=== PATIENT | female | born 1995 | race Caucasian/White ===

== ENCOUNTER 2016-11-28 18:41 | Inpatient (IN) | payer MEDICAID ==
[2016-11-28 19:20] LABS: % BASOPHILS 0.8 % (0.0-2.0); % EOSINOPHILS 0.3 % (0.0-5.0); % LYMPHOCYTES 14.2 % (20.0-50.0); % MONOCYTES 3.6 % (2.0-10.0); % NEUTROPHILS 81.1 % (40.0-80.0); HEMATOCRIT 38.8 % (35.0-45.0); HEMOGLOBIN 12.9 gm/dL (11.7-15.5); MEAN CELL VOLUME 80.7 fl (81-100); MEAN CORPUSCULAR HEMOGLOBIN 26.8 pg (27.0-31.0); MEAN CORPUSCULAR HGB CONC 33.2 pg (28.0-36.0); MEAN PLATELET VOLUME 7.3 fl; NEUTROPHILE ABSOLUTE 14.2 Th/cmm (1.8-8.0); PLATELET COUNT 451 Th/cmm (150-400); RED BLOOD COUNT 4.81 Mil/cmm (3.80-5.10); RED CELL DISTRIBUTION WIDTH 12.7 % (11.5-20.0)
--- NOTE | 2016-11-28 19:21 | ED Physician Chart ---
Chief Complaint/HPI - Patient Information Date Seen:: 11/21/16 Time Seen:: 19:15 Chief Complaint:: CHEST PAIN History of Present Illness:: THIS IS A 21 YO FEMALE WITH LEFT CHEST PAIN AFTER USING 200MG OF THC AND NOW SHE CONCERNED ABOUT HER FAST HEART RATE. SHE DENIES DIABETES, HEART DISEASE. HER GRANDMOTHER HAS HEART DISEASE BUT NO ONE ELSE IN THE FAMILY. SHE DENIES . SHE DENIES FEVER, COUGH AND CHEST PAIN. Allergies:: Allergies Allergy/AdvReac Type Severity Reaction Status Date / Time No Known Allergies Allergy Verified 11/28/16 19:09 Vitals:: Vital Signs - 8 hr 11/28/16 19:10 Temp 98.4 F HR 132 RR 19 BP 133/76 O2 Sat % 99 Historian:: Patient Review:: Nurse's Note Reviewed Review of Systems - Review of Systems General/Constitutional: No fever, No chills, No weight loss, No weakness, No diaphoresis, No edema, No loss of appetite Skin: No skin lesions, No rash, No bruising Head: No headache, No light-headedness Eyes: No loss of vision, No pain, No diplopia ENT: No earache, No nasal drainage, No sore throat, No tinnitus Neck: No neck pain, No swelling, No thyromegaly, No stiffness, No mass noted Cardio Vascular: Chest pain, No palpitations, No PND, No orthopnea, No edema Pulmonary: No SOB, No cough, No sputum, No wheezing GI: No nausea, No vomiting, No diarrhea, No pain, No melena, No hematochezia, No constipation, No hematemesis G/U: No dysuria, No frequency, No hematuria Musculoskeletal: No bone or joint pain, No back pain, No muscle pain Endocrine: No polyuria, No polydipsia Psychiatric: No prior psych history, No depression, No anxiety, No suicidal ideation Hematopoietic: No bruising, No lymphadenopathy Allergic/Immuno: No urticaria, No angioedema Neurological: No syncope, No focal symptoms, No weakness, No paresthesia, No headache, No seizure, No dizziness, No confusion, No vertigo Past Medical History - Past Medical History Obtainable: Yes Past Medical History: HTN Family History: Heart disease (GRANDMOTHER) Social History: Smoker, No Alcohol, Illicit Drug Use Surgical History: None Psychiatricy History: None Medication: Reviewed Physical Exam - Physical Examination General/Constitutional: Awake, Well-developed, well-nourished, Alert, No distress, GCS 15, Non-toxic appearing, Ambulatory Other Gen/Cons comments:: OBESE AND ALERT AND COOPERATIVE Head: Atraumatic Eyes: Lids, conjuctiva normal, PERRL, EOMI Skin: Nl inspection, No rash, No skin lesions, No ecchymosis, Well hydrated, No lymphadenopathy ENMT: External ears, nose nl, Nasal exam nl, Lips, teeth, gums nl Neck: Nontender, Full ROM w/o pain, No JVD, No nuchal rigidity, No bruit, No mass, No stridor Respiratory: Nl effort/Exclusion, Clear to Auscultation, No Wheeze/Rhonchi/Rales Cardio Vascular: RRR, No murmur, gallop, rubs, NL S1 S2 GI: No tenderness/rebounding/guarding, No organomegaly, No hernia, Normal BS's, Nondistended, No mass/bruits, No McBurney tenderness : No CVA tenderness Extremities: No tenderness or effusion, Full ROM, normal strength in all extremities, No edema, Normal digits & nails Neuro/Psych: Alert/oriented, DTR's symmetric, Normal sensory exam, Normal motor strength, Judgement/insight normal, Mood normal, Normal gait, No focal deficits Misc: normal gait, Normal back, No paraspinal tenderness Labs/Radiology/EKG Results - Lab Results Results: Abnormal Lab Results 11/28/16 11/28/16 11/28/16 19:11 19:11 19:11 WBC 17.5 H RBC 4.81 Hgb 12.9 Hct 38.8 MCV 80.7 L MCH 26.8 L MCHC Differential 33.2 RDW 12.7 Plt Count 451 H MPV 7.3 Neutrophils % 81.1 H Lymphocytes % 14.2 L Monocytes % 3.6 Eosinophils % 0.3 Basophils % 0.8 PT INR PTT (Actin FS) Sodium 132 L Potassium 3.4 L Chloride 99 Carbon Dioxide 25.2 Anion Gap 11.2 BUN 12 Creatinine 0.6 Est GFR ( Amer) > 60.0 Est GFR (Non-Af Amer) > 60.0 BUN/Creatinine Ratio 20.0 Glucose 141 H Whole Bld Lactic Acid Calcium 9.7 Total Bilirubin 0.2 L AST 22 ALT 26 Alkaline Phosphatase 69 Troponin I Total Protein 7.9 Albumin 4.2 Globulin 3.7 Albumin/Globulin Ratio 1.1 Triglycerides 143 Cholesterol 125 LDL Cholesterol Direct 74 L HDL Cholesterol 32 11/28/16 11/28/16 11/28/16 19:11 19:11 19:11 WBC RBC Hgb Hct MCV MCH MCHC Differential RDW Plt Count MPV Neutrophils % Lymphocytes % Monocytes % Eosinophils % Basophils % PT 10.7 INR 1.03 PTT (Actin FS) 24.2 L Sodium Potassium Chloride Carbon Dioxide Anion Gap BUN Creatinine Est GFR ( Amer) Est GFR (Non-Af Amer) BUN/Creatinine Ratio Glucose Whole Bld Lactic Acid 2.42 H* Calcium Total Bilirubin AST ALT Alkaline Phosphatase Troponin I < 0.01 L Total Protein Albumin Globulin Albumin/Globulin Ratio Triglycerides Cholesterol LDL Cholesterol Direct HDL Cholesterol - Radiology Results Results: CHEST X-RAY = NAD - EKG Interpretations EKG Time:: 18:47 Rate & Rhythm: [id number] SINUS TACHY [place]: RIGHT AXIS Assessment - Assessment General Assessment: DRUG ABUSE THC AND METH ACUTE TACHYCARDIA LACTIC ACIDOSIS LEUCOCYTOSIS ED Septic Shock - . Is Septic Shock (SBP<90, OR Lactate>4 mmol\L) present?: No - <6hrs of presentation: Vital Signs: Vital Signs - 8 hr 11/28/16 19:10 Temp 98.4 F HR 132 RR 19 BP 133/76 O2 Sat % 99 Reassessment (Disposition) - Reassessment Reassessment Condition:: Improved - Diagnosis Diagnosis:: ACUTE TACHYCARDIA LACTIC ACIDOSIS DRUG ABUSE - Patient Disposition Discharge/Transfer:: Acute Care w/in this hosp Admitting Medical Physician:: Dino Wilde Condition at Disposition:: Stable ED Discharge Plan - Patient Disposition Admit/Discharge/Transfer: Acute Care w/in this hosp Condition at Disposition: Unchanged
[2016-11-28 19:30] LABS: WHITE BLOOD COUNT 17.5 Th/cmm (4.8-10.8)
[2016-11-28] MEDS ORDERED: cefTRIAXone 1 GM in Sodium Chloride 0.9% 50 ML IV ONE (19:33)
[2016-11-28 19:38] LABS: ALB/GLOB RATIO 1.1 (1.0-1.8); ALKALINE PHOSPHATASE 69 U/L (34-104); ANION GAP 11.2 (7.0-16.0); BILIRUBIN,TOTAL 0.2 mg/dL (0.3-1.0); BUN - UREA NITROGEN 12 mg/dL (7-25); CALCIUM SERUM 9.7 mg/dL (8.6-10.3); CARBON DIOXIDE 25.2 mEq/L (21.0-31.0); CHLORIDE 99 mEq/L (98-107); CHOLESTEROL 125 mg/dL (<200); CREATININE - SERUM 0.6 mg/dL (0.6-1.2); GLUCOSE 141 mg/dL (70-105); POTASSIUM SERUM 3.4 mEq/L (3.5-5.1); SGOT 22 U/L (13-39); SGPT/ALT 26 U/L (7-52); SODIUM SERUM 132 mEq/L (136-145); TRIGLYCERIDES 143 mg/dL (<150)
[2016-11-28] MEDS ORDERED: Sodium Chloride 0.9% 1,000 ML IV ONE (20:00)
[2016-11-28 20:07] LABS: INR 1.03 (0.5-1.4); PROTHROMBIN TIME (TEST) 10.7 SECONDS (9.5-11.5)
[2016-11-28 21:44] LABS: URINE BILIRUBIN NEGATIVE (NEGATIVE); URINE BLOOD NEGATIVE (NEGATIVE); URINE GLUCOSE (UA) NEGATIVE (NEGATIVE); URINE KETONE NEGATIVE (NEGATIVE); URINE PROTEIN NEGATIVE (NEGATIVE); URINE UROBILINOGEN 0.2 E.U./dL (0.2 - 1.0)
[2016-11-28 21:48] LABS: AMPHETAMINE URINE NEGATIVE (NEGATIVE); BARBITURATES URINE NEGATIVE (NEGATIVE); METHADONE URINE NEGATIVE (NEGATIVE)
[2016-11-28 21:49] LABS: URINE BACTERIA MODERATE /hpf (NONE SEEN); URINE COLOR YELLOW; URINE EPITHELIAL CELLS MODERATE /lpf (FEW); URINE RBC NONE SEEN /hpf (0-5)
[2016-11-28 22:06] VITALS: BP 106/54
[2016-11-28] MEDS: D5-0.45NS 1,000 ML IV SCH (22:10)
[2016-11-28] MEDS ORDERED: Hydrocodone/APAP 5mg/325mg Tab PO PRN (23:31)
[2016-11-28] MEDS ORDERED: Maalox 30 mL Cup PO PRN (23:31)
[2016-11-28] MEDS ORDERED: Hydrocodone/APAP 10 mg/325 mg Tab PO PRN (23:31)
[2016-11-28] MEDS ORDERED: Magnesium Hydroxide (MOM) 30 mL UDC PO PRN (23:31)
[2016-11-29 07:41] LABS: % BASOPHILS 0.6 % (0.0-2.0); % EOSINOPHILS 0.2 % (0.0-5.0); % LYMPHOCYTES 21.9 % (20.0-50.0); % MONOCYTES 6.3 % (2.0-10.0); HEMATOCRIT 35.7 % (35.0-45.0); HEMOGLOBIN 11.9 gm/dL (11.7-15.5); MEAN CELL VOLUME 80.8 fl (81-100); MEAN CORPUSCULAR HEMOGLOBIN 26.9 pg (27.0-31.0); MEAN CORPUSCULAR HGB CONC 33.3 pg (28.0-36.0); MEAN PLATELET VOLUME 7.3 fl; NEUTROPHILE ABSOLUTE 8.9 Th/cmm (1.8-8.0); PLATELET COUNT 388 Th/cmm (150-400); RED BLOOD COUNT 4.42 Mil/cmm (3.80-5.10); RED CELL DISTRIBUTION WIDTH 12.6 % (11.5-20.0)
[2016-11-29 07:53] LABS: ANION GAP 7.5 (7.0-16.0); BUN - UREA NITROGEN 7 mg/dL (7-25); CALCIUM SERUM 9.1 mg/dL (8.6-10.3); CARBON DIOXIDE 26.3 mEq/L (21.0-31.0); CHLORIDE 103 mEq/L (98-107); CREATININE - SERUM 0.5 mg/dL (0.6-1.2); GLUCOSE 111 mg/dL (70-105); POTASSIUM SERUM 3.8 mEq/L (3.5-5.1); SODIUM SERUM 133 mEq/L (136-145)
[2016-11-29 08:26] LABS: WHITE BLOOD COUNT 12.5 Th/cmm (4.8-10.8)
--- NOTE | 2016-11-29 08:50 | Diagnostic Imaging Report ---
Portable chest x-ray Time: 2151 History: Chest pain Allowing for portable technique the heart size is normal. No focal pulmonary parenchymal processes. No hilar or mediastinal abnormalities. Impression: No acute abnormalities.
--- NOTE | 2016-11-29 09:32 | History & Physical ---
ADMIT DATE: 11/29/2016 CHIEF COMPLAINT: Chest pain. HISTORY OF PRESENT ILLNESS: The patient is a 21-year-old female who is complaining of left-sided chest pain, after using 2 mg of ____. The patient not concerned about her fast heart rate. The patient denies any other medical ____ problems. REVIEW OF SYSTEMS: See history of present illness. PAST MEDICAL HISTORY: Hypertension. SOCIAL HISTORY: The patient denies smoking, drinking or IV drug use. PAST SURGICAL HISTORY: Negative. PAST PSYCHIATRIC HISTORY: Negative. MEDICATIONS: See medication reconciliation form. PHYSICAL EXAMINATION: GENERAL: The patient is awake, alert, nontoxic in appearance. VITAL SIGNS: On admission, temperature 98.1, pulse 129, blood pressure 119/64, respirations 18, O2 sat 95% on room air. HEENT: Normocephalic, atraumatic. Extraocular movements intact. Oropharynx clear. NECK: Supple, no thyromegaly. CARDIOVASCULAR: S1, S2, tachycardic. RESPIRATORY: Clear. No wheezes or rhonchi. GASTROINTESTINAL: Soft, nontender, bowel sounds present. GENITOURINARY: No significant suprapubic tenderness. BACK: There is no midline tenderness. EXTREMITIES: Equal pulses bilaterally. No cyanosis, clubbing or edema. SKIN: Negative. PSYCHIATRIC: Negative. NEUROLOGIC: Cranial nerves intact. Extraocular movements intact. Sensation intact. Neurovascular is intact. Bilateral muscle strengths equal. LABORATORY DATA: Labs on admission are as follows: Hematology: WBC 17.5, hemoglobin 12.9, hematocrit 38.8, platelet count of 451, 81% neutrophils, 14% lymphocytes. PT 10.7, INR 1.03, PTT 24.2. Chemistry: Sodium 132, potassium 3.4, chloride 109, bicarbonate 25, anion gap 11, BUN 12, creatinine 0.6, GFR is more than 60. Glucose is 141, lactic acid 2.42, calcium 9.7. Total bili 0.2, AST 22, ALT 27, alkaline phosphatase 69. Troponin less than 0.01. Total protein 7.9, albumin 4.2, globulin 3.7. Glucose 143, cholesterol 125, LDL 74, HDL 32. TSH 0.52. Urinalysis negative. Urine drug screen is positive, Benzos and Cannabinoids. RPR nonreactive. IMPRESSION: 1. Leukocytosis. 2. Thrombocytosis. 3. Hypernatremia. 4. Hyperkalemia. 5. Hyperglycemia. 6. Lactic acidosis. 7. Benzodiazepine abuse. 8. Cannabinoid abuse. 9. Tachycardia. PLAN: The patient was admitted to telemetry unit, seen by Dr. Loy Wilde. Obtain further labs and consultation as needed. JOB# [id number]
[2016-11-29] MEDS: D5-0.45NS 1,000 ML IV SCH ×2 (10:51→21:50)
--- NOTE | 2016-11-29 22:23 | Admit Criteria Form ---
Admit Criteria Forms - Admit Criteria Diagnosis: TELEMETRY CARE Telemetry Admission Guidelines (Place 'X' for any and all applicable criteria): Admission to telemetry [A] may be indicated for ANY ONE of the following(1)(2)(3 )(4)(5): [X ]I. Cardiac disease, including ANY ONE of the following (9)(10)(11)(12)( 13): [ ]a) Postacute OH [ ]b) Low-risk patients with ST-segment elevation OH who have undergone successful percutaneous coronary intervention [ ]c) Unstable angina [ ]d) Suspected OH (until it is ruled out) [ ]e) Post cardiac surgery (first 48 to 72 hours unless complications occur) [X ]f) Acute arrhythmias (including significant tachycardia or bradycardia) [B] [ ]g) Firing of an implantable cardioverter defibrillator [C] [ ]h) Suspected pacemaker or implantable cardioverter defibrillator malfunction (10) [ ]i) New administration or adjustment of an antiarrhythmic drug [D ] [ ]j) Child admitted for acute congestive heart failure [ ]j) Long QT syndrome [ ]k) Advanced heart block (eg, second-degree Mobitz type II, third- degree heart block) [ ]l) Acute myocarditis or pericarditis [ ]m) Short-term (ambulatory or inpatient) monitoring after a cardiac procedure as indicated by ANY ONE of the following [E]: [ ]i) Electrophysiologic studies [ ]ii) Percutaneous coronary intervention with stent placement [ ]iii) Pacemaker placement with cardiac conduction defect [ ]iv) Implantable cardiac defibrillator placement [ ]II. Drug overdose or poisoning with substance that causes arrhythmias or QT prolongation (eg, phenothiazines, sympathomimetic agents, cyclic antidepressants, digitalis, antiarrhythmic drugs)(15) [ ]III. Short-term (ambulatory or inpatient) monitoring after therapeutic or diagnostic procedure requiring conscious sedation or anesthesia (eg, endoscopy, elective cardioversion) [ ]IV. Acute cerebrovascular even[F](18) [ ]V. Massive blood transfusion (eg, at least 10 units of packed red blood cells in 24 hours) [ ]. Variceal bleeding after endoscopy, sclerotherapy, or IV vasopressin [ ]VII. Uncorrected electrolyte abnormalities associated with an increased risk of dangerous arrhythmia [G]; examples include [ ]a) Hyperkalemia with attributable ECG changes [ ]b) Potassium greater than 6.5 mmol/L (mEq/L) in a patient without history of chronic renal disease [ ]c) Prolonged QT attributed to hypokalemia, hypomagnesemia, or hypocalcemia [ ]VIII.Unexplained syncope or other neurologic event suspected of being due to arrhythmia due to a finding that increases risk; examples include(19)(20)(21): [ ]a) High-risk ECG findings (eg, bifascicular block, bradycardia, abnormal QT interval, ventricular pre- excitation) [ ]b) History of previous syncope due to arrhythmia [ ]c) Abnormal ventricular function (eg, reduced ejection fraction ) [ ]d) Exertional or supine syncope [ ]e) Concerning syncope characteristics (eg, sudden loss of consciousness without prodrome) [ ]f) Family history of sudden [ ]g) Use of arrhythmogenic medication [ ]h) Suspected cardiac ischemia [ ]i) Known channelopathy (eg, long QT syndrome, Brugada syndrome, or catecholaminergic paroxysmal ventricular tachycardia) [ ]j) Known structural heart disease (eg, hypertrophic cardiomyopathy , severe valvular disease) [ ]k) Palpitations preceding syncope The original [employer] content created by [employer] has been revised. The portions of the content which have been revised are identified through the use of italic text or in bold, and [employer] [employer] [employer] has neither reviewed nor approved the modified material. All other unmodified content is copyright [employer]. Please see references footnoted in the original [employer] edition 2016 Admit Criteria Met?: Yes
[2016-11-30 05:31] LABS: % BASOPHILS 0.5 % (0.0-2.0); % EOSINOPHILS 1.2 % (0.0-5.0); % MONOCYTES 6.8 % (2.0-10.0); % NEUTROPHILS 64.5 % (40.0-80.0); HEMATOCRIT 37.4 % (35.0-45.0); HEMOGLOBIN 12.3 gm/dL (11.7-15.5); MEAN CELL VOLUME 81.2 fl (81-100); MEAN CORPUSCULAR HEMOGLOBIN 26.6 pg (27.0-31.0); MEAN CORPUSCULAR HGB CONC 32.8 pg (28.0-36.0); MEAN PLATELET VOLUME 7.8 fl; NEUTROPHILE ABSOLUTE 7.8 Th/cmm (1.8-8.0); PLATELET COUNT 369 Th/cmm (150-400); RED CELL DISTRIBUTION WIDTH 12.8 % (11.5-20.0)
[2016-11-30 06:01] LABS: WHITE BLOOD COUNT 12.1 Th/cmm (4.8-10.8)
[2016-11-30 06:05] LABS: ANION GAP 8.2 (7.0-16.0); BUN - UREA NITROGEN 7 mg/dL (7-25); CARBON DIOXIDE 25.6 mEq/L (21.0-31.0); CHLORIDE 105 mEq/L (98-107); CREATININE - SERUM 0.5 mg/dL (0.6-1.2); GLUCOSE 103 mg/dL (70-105); POTASSIUM SERUM 3.8 mEq/L (3.5-5.1); SODIUM SERUM 135 mEq/L (136-145)
[2016-11-30] MEDS: D5-0.45NS 1,000 ML IV SCH (06:59)
--- NOTE | 2016-11-30 20:27 | Discharge Summary ---
DATE OF DISCHARGE: 11/30/2016 DISCHARGE DIAGNOSES: 1. Leukocytosis (improved, most likely reactive). 2. Hyponatremia (improved). 3. Lactic acidosis (improved). 4. Hyperglycemia (resolved). 5. Benzodiazepine abuse. 6. Cannabinoid abuse. HOSPITAL COURSE: The patient is a 21-year-old female who presented with chest pain after using cannabis. The patient was admitted with diagnosis of leukocytosis, thrombocytosis, hyponatremia, hypokalemia, hyperglycemia, lactic acidosis, benzodiazepine abuse, cannabinoid abuse and tachycardia. The patient admitted to telemetry unit. Cardiology consultation obtained from Dr. Wilde. Results of the urine drug screen was positive for benzodiazepine and Cannabinoids. The patient was placed on IV fluids. Throughout the hospital course the patient's tachycardia resolved, the patient's leukocytosis improved and patient's hyperglycemia, resolved and the patient's hyponatremia improved. The patient will be discharged home today. The patient will follow up with her PMD, PCP or Dr. Loy Wilde in one week's time. JOB# [id number]
--- NOTE | 2016-11-30 22:22 | Progress Notes ---
DATE: 11/30/2016 SUBJECTIVE: The patient is awake and alert. The patient denies any acute complaints. PHYSICAL EXAMINATION: VITAL SIGNS: Temperature is 98, pulse 71, blood pressure 133/78, respiratory rate 20, pulse ox 100% on room air. CARDIOVASCULAR: S1 and S2. LUNGS: Clear. GASTROINTESTINAL: Soft. Positive bowel sounds. LABORATORY DATA: Hematology: WBC is 10.1, hemoglobin 12.3, hematocrit 7.4, platelet count of 69. No left shift noted. Chemistry: Sodium 135, potassium 3.8, chloride 105, bicarbonate 25, anion 8.2, BUN 7, creatinine 0.5. GFR is more than 60. Glucose is 103, calcium 9.0. MICROBIOLOGY: Blood culture from 11/28/2016 shows no growth. MRSA screen from 11/28/2016 is negative. RADIOLOGY: No new results. ASSESSMENT: 1. Leukocytosis (reactive). 2. Lactic acidosis (resolved). 3. Benzodiazepine abuse. 4. Cannabinoid abuse. 4. Tachycardia (resolved). 5. Hyponatremia. 6. Hyperglycemia (resolved). PLAN: Continue current intervention. imaging account manager for discharge planning. JOB# [id number]
[2016-12-01] MEDS ORDERED: BIRTH CONTROL PILLS PO SCH (09:00)
== END 2016-11-30 12:50 | disposition home or self-care (01) | DRG 424 ==
LOC: ER 18:41 → TELE 20:37
PROVIDERS: ADMIT Preventive Medicine Preventive Medicine/Occupational Environmental Medicine; ATTEND Preventive Medicine Preventive Medicine/Occupational Environmental Medicine
DX: R73.9 Hyperglycemia, unspecified (principal); E87.2 Acidosis; F12.10 Cannabis abuse, uncomplicated; E87.1 Hypo-osmolality and hyponatremia; I10 Essential (primary) hypertension; R07.9 Chest pain, unspecified; E87.5 Hyperkalemia; F17.210 Nicotine dependence, cigarettes, uncomplicated; R00.0 Tachycardia, unspecified; D72.829 Elevated white blood cell count, unspecified; D47.3 Essential (hemorrhagic) thrombocythemia; F13.10 Sedative, hypnotic or anxiolytic abuse, uncomplicated; Z82.49 Family history of ischemic heart disease and other diseases of the circulatory system
CPT/HCPCS: 36415-UA; 71010-TC; 80048-TC; 80053-TC; 80061-TC; 80307; 81001-TC; 81025-TC; 83605; 84443-TC; 84484-TC; 85025-TC; 85610-TC; 85730-TC; 86592-TC; 93005; 96374; J0696; J2060; J7030